=== PATIENT | female | born 1950 | race Caucasian/White ===

== ENCOUNTER → 2017-01-03 | Day surgery (SDC) | payer OTHER ==
[~2017-01-03] MED LIST: AMLODIPINE BESYL5 MG PO; MAGNESIUM500 MG PO; OMEPRAZOLE20 M1 PO; VITAMIN D33000 UNIT PO; WELLBUTRIN SR150 M1 PO; ZETIA PO
--- NOTE | ~2017-01-03 | OR ---
Unit #: [id number] #: [id number] Patient: KANDACE ANDREW [id number] [address] [place], [place] [address] [id number] O MR#: [id number] NAME: KANDACE ANDREW ROOM: Date of Procedure: 01/03/2017 Admission Date: 01/03/2017 Surgeon: Waylon Machado Jr., M.D. : 1950 Attending Physician: Waylon Machado Jr., M.D. Primary Care Physician: Chidi Romeo M.D. OPERATIVE REPORT INDICATIONS FOR PROCEDURE The patient is a 66-year-old white female, who presents desiring screening colonoscopy. She has had a previous colonoscopy over 12 years ago and apparently required barium enema after the scope apparently because the scope could not be advanced completely. The patient has had no rectal bleeding and no change in bowel habits. She is brought in strictly for screening colonoscopy to rule out pathology. PREOPERATIVE DIAGNOSIS Desired screening colonoscopy to rule out pathology. POSTOPERATIVE DIAGNOSIS Diverticulosis of left colon with only a fair to poor prep. No other abnormalities were noted. ANESTHESIA MAC anesthesia. PROCEDURE PERFORMED Flexible colonoscopy to the cecum. DESCRIPTION OF PROCEDURE The patient was positioned in Mckeon position with left side down. After being given MAC anesthesia, digital rectal examination was performed, which revealed no palpable masses or tenderness. No blood or stool in the rectal ampulla. The Olympus colonoscope was advanced through the anal canal up the rectum and retroflexed down to the area of the anorectal region. There were no fissures, no evidence of any significant internal hemorrhoids. The scope was then straightened and advanced up in the rectosigmoid. In the sigmoid and descending colon areas, there were multiple diverticula without evidence of diverticulitis. The scope was then advanced around the splenic flexure and the transverse colon, around hepatic flexure and the ascending colon, down into the area of the cecum. Light from the tip of the scope could be seen transilluminating through the right lower quadrant abdominal wall area. The scope was slowly removed. There were no tumors, no polyps, no cancer, no AVMs. No evidence of any colitis or acute diverticulitis. The caliber of the colon appeared normal throughout. The scope was removed. The patient tolerated the procedure well and was discharged in satisfactory condition. Dictated by... Unit #: [id number] #: [id number] Patient: SUMAN ANDREWALLISON Machado Jr., M.D. JMB/mark TD: 01/04/2017 06:14 JOB #: [id number] CC: Chidi Romeo M.D. OPERATIVE REPORT Page 1 of 1 X Waylon Machado MD X PROCEDURE OPERATIVE NOTE
--- NOTE | ~2017-01-03 | HP ---
Unit #: [id number] #: [id number] Patient: KANDACE ANDREW [id number] [address] [place], [place] [address] [id number] O MR#: [id number] NAME: KANDACE ANDREW ROOM: Age: 66 Sex: F Admission Date: 01/03/2017 : 1950 Attending Physician: Waylon Machado Jr., M.D. Primary Care Physician: Chidi Romeo M.D. HISTORY AND PHYSICAL CHIEF COMPLAINT Desires screening colonoscopy. PAST MEDICAL HISTORY The patient has had a known past history of gastroesophageal reflux disease, hypertension and back pain. Her last colonoscopy was over 10 years ago. There is a history of noncancerous polyps. PAST SURGICAL HISTORY Hysterectomy and cholecystectomy. SOCIAL HISTORY The patient is single, smokes approximately a half pack of cigarettes per day, is a nondrinker, has a normal good appetite. No recent weight change. FAMILY HISTORY Noncontributory. IMMUNIZATIONS Up to date. ALLERGIES Iodine. MEDICATIONS 1. Omeprazole. 2. Zetia. 3. Wellbutrin. PHYSICAL EXAMINATION GENERAL APPEARANCE: The patient is afebrile. VITAL SIGNS: Normal. HEENT: Unremarkable. NECK: Supple. CHEST: There is equal bilateral expansion with bilateral breath sounds. LUNGS: Clear bilaterally. HEART: Regular rhythm without murmurs or gallops. There is no evidence of cardiomegaly clinically. ABDOMEN: Soft, nontender, benign. There is no palpable mass or organomegaly. No gross abdominal distension. No guarding or rebound. Active bowel wounds present. No evidence of ascites or hernias. EXTREMITIES: Full range of motion without limitation. There is no evidence of peripheral edema. BACK: No CVA tenderness. Unit #: [id number] #: [id number] Patient: KANDACE ANDREW NEUROLOGIC: Grossly intact. IMPRESSION The patient desires screening colonoscopy with a past history of colon polyps. The plan will be to go ahead with a colonoscopy at her request. She understands the procedure including the risks and consents. Dictated by Waylon Machado Jr., M.D. JMB/de TD: 01/16/2017 13:48 JOB #: [id number] HISTORY AND PHYSICAL Page 1 of 1 X Waylon Machado MD HISTORY AND PHYSICAL
== END | disposition home or self-care (01) ==
LOC: COPS 10:45
PROVIDERS: Surgery
PROC: 0DJD8ZZ Inspection of Lower Intestinal Tract, Via Natural or Artificial Opening Endoscopic (ICD-10-PCS; principal; 2017-01-03 12:30)
DX: Z12.11 Encounter for screening for malignant neoplasm of colon (principal); Z86.010 Personal history of colon polyps; K57.30 Diverticulosis of large intestine without perforation or abscess without bleeding; K21.9 Gastro-esophageal reflux disease without esophagitis; I10 Essential (primary) hypertension; J44.9 Chronic obstructive pulmonary disease, unspecified; E78.00 Pure hypercholesterolemia, unspecified; M19.90 Unspecified osteoarthritis, unspecified site; F17.200 Nicotine dependence, unspecified, uncomplicated; Z79.899 Other long term (current) drug therapy; Z90.711 Acquired absence of uterus with remaining cervical stump; Z88.8 Allergy status to other drugs, medicaments and biological substances; Z91.041 Radiographic dye allergy status; Z91.013 Allergy to seafood; Z90.49 Acquired absence of other specified parts of digestive tract; Z83.3 Family history of diabetes mellitus; Z84.89 Family history of other specified conditions
CPT/HCPCS: J2250